=== PATIENT | female | born 1990 | race Two or more races ===

== ENCOUNTER → 2021-07-26 | Outpatient (REF) | payer BC ==
[2021-07-26 19:43] LABS: FREE T4 1.19 NG/DL (0.76-1.46); THYROID STIMULATING HORMONE 2.57 uIU/ML (0.358-3.740)
[2021-07-26 19:46] LABS: FOLLICLE STIMULATING HORMONE 6.9 mIU/mL; LUTEINIZING HORMONE 3.2 mIU/mL
== END ==
LOC: M LAB REF 17:08
PROVIDERS: ATTEND Obstetrics & Gynecology
DX: N92.1 Excessive and frequent menstruation with irregular cycle (principal)

== ENCOUNTER → 2023-07-05 | Outpatient (REF) | payer OTHER | LOC: M PLALAB 16:04 | PROVIDERS: ATTEND Advanced Practice Midwife | DX: Z34.81 Encounter for supervision of other normal pregnancy, first trimester (principal); Z53.9 Procedure and treatment not carried out, unspecified reason ==

== ENCOUNTER → 2023-07-09 | Outpatient (CLI) | payer OTHER ==
[2023-07-09 22:09] LABS: HEMATOCRIT 36.3 % (36.0-47.0); HEMOGLOBIN 11.6 g/dl (12.0-15.5); MEAN CORPUSCULAR HEMOGLOBIN 29.1 pg (27.0-33.0); MEAN CORPUSCULAR VOLUME 91.2 fl (80.0-96.0); PLATELET COUNT, AUTOMATED 283 10^3/uL (150-450); RED BLOOD COUNT 3.98 10^6/uL (4.00-5.40); WHITE BLOOD COUNT 12.6 10^3/uL (4.0-10.0)
[2023-07-09 23:08] LABS: HIV 1&2 SCREEN NEGATIVE (NEGATIVE)
[2023-07-09 23:16] LABS: HEPATITIS C VIRUS ABY INDEX 0.14 INDEX (<0.8)
[2023-07-10 00:32] LABS: GC DNA AMPLIFICATION NEGATIVE (NEGATIVE)
== END ==
LOC: M WUC 15:16
PROVIDERS: ATTEND Advanced Practice Midwife
DX: Z34.81 Encounter for supervision of other normal pregnancy, first trimester (principal)

== ENCOUNTER → 2023-09-03 | Outpatient (CLI) | payer OTHER | LOC: M WHC 12:41 | PROVIDERS: ATTEND Specialist | DX: Z34.82 Encounter for supervision of other normal pregnancy, second trimester (principal); Z3A.18 18 weeks gestation of pregnancy ==

== ENCOUNTER → 2023-09-27 | Outpatient (REF) | payer OTHER | LOC: M LAB REF 16:48 | PROVIDERS: ATTEND Student in an Organized Health Care Education/Training Program | DX: R30.0 Dysuria (principal) ==

== ENCOUNTER → 2023-10-03 | Outpatient (CLI) | payer OTHER | LOC: M WHC 12:03 | PROVIDERS: ATTEND Specialist | DX: Z34.82 Encounter for supervision of other normal pregnancy, second trimester (principal) ==

== ENCOUNTER → 2023-11-06 | Outpatient (CLI) | payer OTHER | LOC: M RAD 11:59 | PROVIDERS: ATTEND Specialist | DX: Z34.83 Encounter for supervision of other normal pregnancy, third trimester (principal); Z3A.28 28 weeks gestation of pregnancy ==

== ENCOUNTER → 2023-11-19 | Outpatient (CLI) | payer OTHER ==
[2023-11-19 11:53] LABS: HEMATOCRIT 35.9 % (36.0-47.0); MEAN CORPUSCULAR HEMOGLOBIN 30.3 pg (27.0-33.0); MEAN CORPUSCULAR HGB CONC 33.4 g/dl (32.0-36.5); MEAN CORPUSCULAR VOLUME 90.7 fl (80.0-96.0); PLATELET COUNT, AUTOMATED 333 10^3/uL (150-450); RED BLOOD COUNT 3.96 10^6/uL (4.00-5.40); WHITE BLOOD COUNT 12.8 10^3/uL (4.0-10.0)
[2023-11-19 12:14] LABS: HEMOGLOBIN A1c 4.8 % (4.0-6.0)
[2023-11-19 12:21] LABS: FOLATE 20.1 NG/ML (>5.4); TOTAL 25(OH) VITAMIN D 9.8 NG/ML (20.0-100.0)
== END ==
LOC: M LAB 11:02
PROVIDERS: ATTEND Advanced Practice Midwife
DX: Z36.9 Encounter for antenatal screening, unspecified (principal)

== ENCOUNTER → 2023-12-24 | Outpatient (CLI) | payer OTHER | LOC: M WHC 06:50 | PROVIDERS: ATTEND Obstetrics & Gynecology | DX: O99.843 Bariatric surgery status complicating pregnancy, third trimester (principal); Z3A.34 34 weeks gestation of pregnancy ==

== ENCOUNTER 2023-12-29 06:35 | Outpatient (CLI) | payer OTHER ==
[~2023-12-29] VITALS: Ht 180.3 cm; Wt 133.2 kg
[2023-12-29] MEDS ORDERED: VALT500T PO (07:06)
[2023-12-29] MEDS ORDERED: PRENTAB9 PO (07:06)
[2023-12-29 07:09] VITALS: BP 115/71
[2023-12-29] MEDS ORDERED: HOME MED LIST COMPLETE! XX SCH (07:10)
== END 2023-12-29 08:18 | disposition home or self-care (01) ==
LOC: M LDO 06:35
PROVIDERS: ATTEND Advanced Practice Midwife
DX: O36.8130 Decreased fetal movements, third trimester, not applicable or unspecified (principal); O99.843 Bariatric surgery status complicating pregnancy, third trimester; O34.219 Maternal care for unspecified type scar from previous cesarean delivery; O34.03 Maternal care for unspecified congenital malformation of uterus, third trimester; Q51.3 Bicornate uterus; Z3A.35 35 weeks gestation of pregnancy
CPT/HCPCS: 59025; G0463

== ENCOUNTER → 2023-12-29 | Outpatient (CLI) | payer OTHER ==
[~2023-12-29] MED LIST: PRENTAB9 PO; VALT500T PO
[2023-12-29 11:22] LABS: ALBUMIN 2.3 G/DL (3.2-5.2); BILIRUBIN,DIRECT 0.1 MG/DL (<0.4); BILIRUBIN,TOTAL 0.4 MG/DL (0.3-1.2); TOTAL PROTEIN 5.6 G/DL (5.7-8.2)
[2023-12-29 11:23] LABS: FOLATE 14.36 NG/ML (>5.4)
== END ==
LOC: M LAB 09:05
PROVIDERS: ATTEND Advanced Practice Midwife
DX: Z34.83 Encounter for supervision of other normal pregnancy, third trimester (principal)

== ENCOUNTER → 2024-01-01 | Outpatient (REF) | payer OTHER | LOC: M SFHCWAGY 15:20 | PROVIDERS: ATTEND Advanced Practice Midwife | DX: Z36.85 Encounter for antenatal screening for Streptococcus B (principal) ==

== ENCOUNTER 2024-01-09 15:58 | Outpatient (CLI) | payer OTHER ==
[~2024-01-09] VITALS: Ht 177.8 cm; Wt 136.5 kg
[2024-01-09 16:29] VITALS: BP 126/67
[2024-01-09] MEDS ORDERED: ACET325C5 PO (16:31)
[2024-01-09] MEDS ORDERED: ONDA4TAB6 PO (16:31)
[2024-01-09] MEDS ORDERED: HOME MED LIST COMPLETE! XX SCH (16:45)
== END 2024-01-09 17:45 | disposition home or self-care (01) ==
LOC: M LDO 15:58
PROVIDERS: ATTEND Advanced Practice Midwife
DX: O36.8130 Decreased fetal movements, third trimester, not applicable or unspecified (principal); O26.893 Other specified pregnancy related conditions, third trimester; O34.219 Maternal care for unspecified type scar from previous cesarean delivery; O99.843 Bariatric surgery status complicating pregnancy, third trimester; O34.03 Maternal care for unspecified congenital malformation of uterus, third trimester; O32.1XX0 Maternal care for breech presentation, not applicable or unspecified; R10.2 Pelvic and perineal pain; M54.50 Low back pain, unspecified; Q51.3 Bicornate uterus; R60.9 Edema, unspecified; Z3A.37 37 weeks gestation of pregnancy
CPT/HCPCS: 59025; G0463

== ENCOUNTER → 2024-01-15 | Outpatient (REF) | payer OTHER ==
[~2024-01-15] MED LIST changes: +ACET325C5 PO; +ONDA4TAB6 PO
== END ==
LOC: M SFHCWAGY 17:11
PROVIDERS: ATTEND Specialist
DX: R30.0 Dysuria (principal)

== ENCOUNTER 2024-01-20 22:33 | Inpatient (IN) | payer OTHER ==
[~2024-01-20] VITALS: Ht 177.8 cm; Wt 135.2 kg
[2024-01-20] MEDS: AZITHROMYCIN INJ 500 MG, VIAL MATE ADAPTER 1 EACH in NS 250 ML IV ONE (00:43)
[2024-01-20 23:31] LABS: BASO % 0.3 % (0.0-1.0); EOS # 0.1 10^3/uL (0.0-0.5); EOS % 0.7 % (0.0-3.0); HEMATOCRIT 35.5 % (36.0-47.0); HEMOGLOBIN 11.9 g/dl (12.0-15.5); LYMPH # 3.1 10^3/uL (1.5-5.0); LYMPH % 20.5 % (24.0-44.0); MEAN CORPUSCULAR HEMOGLOBIN 29.8 pg (27.0-33.0); MEAN CORPUSCULAR HGB CONC 33.5 g/dl (32.0-36.5); MONO % 6.6 % (2.0-8.0); NEUTROPHILS # 10.8 10^3/uL (1.5-8.5); NEUTROPHILS % 71.4 % (36.0-66.0); PLATELET COUNT, AUTOMATED 366 10^3/uL (150-450); RED BLOOD COUNT 3.99 10^6/uL (4.00-5.40); WHITE BLOOD COUNT 15.1 10^3/uL (4.0-10.0)
[2024-01-20] MEDS: LACTATED RINGER'S 1000 ML IV STA (23:41)
[2024-01-20] MEDS ORDERED: ceFAZolin SOD 3 GM IV Place Holder IV ONE (23:45)
[2024-01-20] MEDS: BICITRA 30ML SOLN UDC PO ONE (23:45)
[2024-01-20] MEDS ORDERED: OXYTOCIN INJ 10UNITS/ML 1ML VIAL As Ordered ONE (23:53)
[2024-01-20] MEDS ORDERED: ONDANSETRON 4MG 2ML VIAL As Ordered ONE (23:53)
[2024-01-20] MEDS ORDERED: KETOROLAC 60MG 2ML VIAL As Ordered ONE (23:53)
[2024-01-20] MEDS ORDERED: ACETAMINOPHEN 1000MG 100ML IV BAG As Ordered ONE (23:53)
[2024-01-20] MEDS ORDERED: MORPHINE PRES-FREE INJ 10 MG/10 ML VIAL As Ordered ONE (23:54)
[2024-01-20] MEDS ORDERED: UNRESOLVED CLARIFICATION ENTRY XX STA (23:54)
[2024-01-21] VITALS (9 sets, daily range): BP systolic 118–141; BP diastolic 67–78; TEMP 96.8; O2SAT 96–99
[2024-01-21] MEDS: ceFAZolin SOD 2 GM in IV 1 EA IV ONE (00:48)
[2024-01-21] MEDS: ceFAZolin SOD 1 GM in D5W MINI-BAG PLUS 50 ML IV ONE (00:48)
[2024-01-21 01:15] LABS: CORD GAS ABE A -2.9; CORD GAS ABE V -3.3; CORD GAS HCO3 V 24.1 MMOL/L; CORD GAS O2 SAT A 29.2 %; CORD GAS O2 SAT V 60.2 %; CORD GAS PCO2 A 62.5 mmHg; CORD GAS PH A 7.237 UNITS; CORD GAS PH V 7.284 UNITS; CORD GAS PO2 A 16.6 mmHg; CORD GAS PO2 V 25.7 mmHg; CORD GAS SBC A 20.4 MMOL/L; CORD GAS SBC V 20.9 MMOL/L; CORD GAS TCO2 A 27.9 MMOL/L; CORD GAS TCO2 V 25.7 MMOL/L
[2024-01-21] MEDS ORDERED: MOM 30ML SUSPENSION UDC PO PRN (01:40)
[2024-01-21] MEDS ORDERED: OXYTOCIN 30UNITS IN 0.9% NaCl 500ML IV BAG As Ordered ONE (01:48)
[2024-01-21] MEDS: OXYTOCIN DRIP 30 UNITS in IV 1 EA IV SCH (02:03)
[2024-01-21] MEDS ORDERED: ONDANSETRON 4MG 2ML VIAL IV PRN (02:20)
[2024-01-21] MEDS ORDERED: diphenhydrAMINE 50MG/ML VIAL IV PRN (02:20)
[2024-01-21] MEDS ORDERED: fentaNYL 100 MCG/2 ML INJECTION IV PRN (02:20)
[2024-01-21] MEDS ORDERED: **NOTE PATIENT COMMENT** MISC XX SCH (02:20)
[2024-01-21] MEDS ORDERED: METOCLOPRAMIDE INJ 10MG/2ML VIAL IV PRN (02:20)
[2024-01-21] MEDS ORDERED: NALOXONE INJ 0.4MG/1ML VIAL IV PRN ×2 (02:20)
[2024-01-21] MEDS ORDERED: oxyCODONE 5MG TAB PO PRN (02:20)
[2024-01-21] MEDS ORDERED: HYDROMORPHONE HCL 0.5 MG/ 0.5 ML SYRINGE As Ordered ONE (02:39)
[2024-01-21] MEDS: HYDROMORPHONE HCL 0.5 MG/ 0.5 ML SYRINGE IV PRN (02:43)
[2024-01-21] MEDS: SLF 3 ML SYR IV SCH (03:00)
[2024-01-21] MEDS: KETOROLAC 30 MG/ML 1ML VIAL IV SCH (06:28)
[2024-01-21] MEDS: PERCOCET 5MG/325MG TAB PO PRN (09:42)
[2024-01-21] MEDS: PRENATAL VITAMINS CHEWABLE TABLET PO SCH (09:42)
[2024-01-21] MEDS: DOCUSATE SODIUM 100MG CAPSULE PO SCH (09:42)
[2024-01-21] MEDS ORDERED: HOME MED LIST COMPLETE! XX SCH (16:45)
[2024-01-22 02:00] VITALS: BP 121/63; O2SAT 98
[2024-01-22] MEDS: IBUPROFEN 800 MG TAB PO SCH (02:21)
[2024-01-22 06:00] VITALS: BP 125/64; O2SAT 98
[2024-01-22 07:14] LABS: HEMATOCRIT 31.1 % (36.0-47.0); HEMOGLOBIN 10.1 g/dl (12.0-15.5); MEAN CORPUSCULAR HEMOGLOBIN 29.9 pg (27.0-33.0); MEAN CORPUSCULAR HGB CONC 32.5 g/dl (32.0-36.5); PLATELET COUNT, AUTOMATED 293 10^3/uL (150-450); RED BLOOD COUNT 3.38 10^6/uL (4.00-5.40); WHITE BLOOD COUNT 12.8 10^3/uL (4.0-10.0)
[2024-01-22 09:59] VITALS: BP 131/60; O2SAT 98
[2024-01-22 14:00] VITALS: BP 119/62; O2SAT 96
[2024-01-22 18:00] VITALS: BP 129/66; O2SAT 97
[2024-01-22] MEDS: RHOGAM 300MCG (1500IU) INJ IM SCH (20:55)
[2024-01-22] MEDS: MEASLES,MUMPS,RUBELLA VACCINE INJ (MMR-II) SC.IMMUN ONE (20:55)
[2024-01-22 22:00] VITALS: BP 132/69; O2SAT 98
[2024-01-23] MEDS: SIMETHICONE 80MG CHEW TAB PO PRN (00:38)
[2024-01-23 05:56] VITALS: BP 109/58; O2SAT 98
[2024-01-23] MEDS ORDERED: IBUP80TA PO (07:14)
[2024-01-23] MEDS ORDERED: OXYC1TAB23 PO (07:14)
[2024-01-23] MEDS ORDERED: COLA100C5 PO (07:15)
== END 2024-01-23 12:35 | disposition home or self-care (01) | DRG 540 ==
LOC: M LDO 22:33 → M LDI 22:57 → M OBS 01-21 03:00
PROVIDERS: ADMIT Obstetrics & Gynecology; ATTEND Obstetrics & Gynecology
PROC: 0UB70ZZ Excision of Bilateral Fallopian Tubes, Open Approach (ICD-10-PCS; 2024-01-21)
PROC: 10D00Z1 Extraction of Products of Conception, Low, Open Approach (ICD-10-PCS; principal; 2024-01-21 00:30)
DX: O34.211 Maternal care for low transverse scar from previous cesarean delivery (principal); Z37.0 Single live birth; Z3A.38 38 weeks gestation of pregnancy; E66.9 Obesity, unspecified; O99.214 Obesity complicating childbirth; Z30.2 Encounter for sterilization

== ENCOUNTER → 2024-07-28 | Outpatient (REF) | payer OTHER ==
[~2024-07-28] MED LIST changes: +COLA100C5 PO; +IBUP80TA PO; +ONDA-282 PO; -ONDA4TAB6 PO; +OXYC1TAB23 PO
== END ==
LOC: M LAB REF 11:22
PROVIDERS: ATTEND Nurse Practitioner Family
DX: R30.0 Dysuria (principal)

== ENCOUNTER 2024-08-17 08:33 | Emergency (ER) | payer OTHER ==
[~2024-08-17] VITALS: Ht 180.3 cm; Wt 131.4 kg
[2024-08-17] MEDS ORDERED: ACIT1CAP2 (08:52)
[2024-08-17] MEDS ORDERED: NAPR220C14 PO (08:52)
[2024-08-17 11:49] LABS: BASO % 0.2 % (0.0-1.0); EOS # 0.1 10^3/uL (0.0-0.5); EOS % 0.4 % (0.0-3.0); HEMATOCRIT 34.5 % (36.0-47.0); LYMPH # 1.7 10^3/uL (1.5-5.0); LYMPH % 12.1 % (24.0-44.0); MEAN CORPUSCULAR HEMOGLOBIN 26.7 pg (27.0-33.0); MEAN CORPUSCULAR HGB CONC 31.9 g/dl (32.0-36.5); MEAN CORPUSCULAR VOLUME 83.7 fl (80.0-96.0); MONO # 0.8 10^3/uL (0.0-0.8); MONO % 5.6 % (2.0-8.0); NEUTROPHILS # 11.1 10^3/uL (1.5-8.5); NEUTROPHILS % 81.3 % (36.0-66.0); PLATELET COUNT, AUTOMATED 310 10^3/uL (150-450); RED BLOOD COUNT 4.12 10^6/uL (4.00-5.40); WHITE BLOOD COUNT 13.7 10^3/uL (4.0-10.0)
[2024-08-17 12:11] LABS: ALBUMIN 3.3 G/DL (3.2-5.2); ALKALINE PHOSPHATASE 76 U/L (46-116); ALT/SGPT 18 U/L (7.0-40); AST/SGOT 11 U/L (<34); BILIRUBIN,TOTAL 0.5 MG/DL (0.3-1.2); BLOOD UREA NITROGEN 8 MG/DL (9-23); CALCIUM LEVEL 7.9 MG/DL (8.5-10.1); CARBON DIOXIDE LEVEL 26 MMOL/L (20-31); CHLORIDE LEVEL 110 MMOL/L (98-107); GLOMERULAR FILTRATION RATE > 60.0 (>60); GLUCOSE, FASTING 85 MG/DL (60-100); POTASSIUM SERUM 3.7 MMOL/L (3.5-5.1); SODIUM LEVEL 140 MMOL/L (136-145); TOTAL PROTEIN 6.5 G/DL (5.7-8.2)
[2024-08-17] MEDS: METOCLOPRAMIDE INJ 10MG/2ML VIAL IV ONE (13:18)
[2024-08-17] MEDS: KETOROLAC 30 MG/ML 1ML VIAL IV ONE (13:19)
[2024-08-17 13:23] LABS: ERYTHROCYTE SEDIMENTATION RATE 43 mm/hr (0-20)
[2024-08-17 13:46] LABS: PROCALCITONIN 0.16 ng/ml
[2024-08-17] MEDS ORDERED: PROHANCE 279.3MG/ML 15ML VIAL As Ordered ONE (14:50)
[2024-08-17] MEDS ORDERED: PROHANCE 279.3MG/ML 5ML VIAL As Ordered ONE (14:50)
[2024-08-17 17:01] VITALS: BP 96/59; O2SAT 96
[2024-08-17 17:16] VITALS: TEMP 98.2
[2024-08-21 16:22] LABS: LYME TOTAL ANTIBODY CIA <= 0.90 Index (<=0.90)
== END 2024-08-17 17:19 | disposition home or self-care (01) ==
LOC: M ED 08:33
DX: R50.9 Fever, unspecified (principal); B34.9 Viral infection, unspecified; M51.369 Other intervertebral disc degeneration, lumbar region without mention of lumbar back pain or lower extremity pain; Z90.49 Acquired absence of other specified parts of digestive tract; Z98.84 Bariatric surgery status; Z79.1 Long term (current) use of non-steroidal anti-inflammatories (NSAID); Z79.899 Other long term (current) drug therapy
CPT/HCPCS: 71046; 72158; 80053; 81001; 83605; 84145; 85025; 85652; 86140; 86618; 87040; 87086; 87486; 87581; 87633; 87798; 87880; 93041; 94760; 96374; 96375; 99285; A9576; J1885; J2765

== ENCOUNTER → 2025-05-25 | Outpatient (REF) | payer OTHER ==
[~2025-05-25] MED LIST changes: +ACIT1CAP2; +NAPR220C14 PO
[2025-05-25 17:10] LABS: BASO # 0.1 10^3/uL (0.0-0.2); BASO % 0.4 % (0.0-1.0); EOS # 0.2 10^3/uL (0.0-0.5); EOS % 1.9 % (0.0-3.0); LYMPH # 3.3 10^3/uL (1.5-5.0); LYMPH % 28.0 % (24.0-44.0); MONO # 0.7 10^3/uL (0.0-0.8); MONO % 6.3 % (2.0-8.0); NEUTROPHILS # 7.5 10^3/uL (1.5-8.5); NEUTROPHILS % 63.1 % (36.0-66.0); PLATELET COUNT, AUTOMATED 429 10^3/uL (150-450)
[2025-05-25 17:34] LABS: IRON (FE) 12 UG/DL (50-170)
[2025-05-25 17:35] LABS: ALT/SGPT 17 U/L (7.0-40); AST/SGOT 18 U/L (<34); CALCIUM LEVEL 8.2 MG/DL (8.5-10.1); CARBON DIOXIDE LEVEL 29 MMOL/L (20-31); CHLORIDE LEVEL 104 MMOL/L (98-107); CREATININE FOR GFR 0.67 MG/DL (0.55-1.30); GLOMERULAR FILTRATION RATE > 90.0 (>60); MAGNESIUM LEVEL 1.9 MG/DL (1.8-2.4); PERCENT SATURATION 3.1 % (13.2-45.0); POTASSIUM SERUM 4.7 MMOL/L (3.5-5.1); SODIUM LEVEL 143 MMOL/L (136-145)
[2025-05-25 17:39] LABS: TOTAL 25(OH) VITAMIN D 22.6 NG/ML (20.0-100.0)
[2025-05-25 17:40] LABS: VITAMIN B12 LEVEL 375 PG/ML (211-911)
== END ==
LOC: M LAB REF 16:38
PROVIDERS: ATTEND Nurse Practitioner Family
DX: Z98.84 Bariatric surgery status (principal); E55.9 Vitamin D deficiency, unspecified

== ENCOUNTER → 2025-08-27 | Outpatient (REF) | payer OTHER | LOC: M LAB REF 11:20 | PROVIDERS: ATTEND Nurse Practitioner Family | DX: Z12.4 Encounter for screening for malignant neoplasm of cervix (principal); R87.610 Atypical squamous cells of undetermined significance on cytologic smear of cervix (ASC-US) ==